=== PATIENT | female | born 1945 | race Two or more races ===

== ENCOUNTER 2022-09-17 21:40 | Inpatient (IN) | payer OTHER ==
[~2022-09-17] VITALS: Ht 2.5 cm; Wt 68.2 kg
[2022-09-17 22:00] VITALS: BP 124/52
[2022-09-17] MEDS ORDERED: ONDANSETRON HCL 4 MG/2 ML VIAL IV PRN (22:15)
[2022-09-17] MEDS ORDERED: NITROGLYCERIN 0.4 MG SL TAB SL PRN (22:15)
[2022-09-17] MEDS ORDERED: DEXTROSE (50%) 50ML SYRG IV PRN (22:15)
[2022-09-17] MEDS ORDERED: MORPHINE SULFATE INJ 2 MG/ml SYRG IV PRN (22:15)
[2022-09-18] VITALS (7 sets, daily range): BP systolic 91–135; BP diastolic 41–56
[2022-09-18] MEDS ORDERED: POTA20TA24 (00:34)
[2022-09-18] MEDS ORDERED: EMPA1TAB3 PO (00:34)
[2022-09-18] MEDS ORDERED: LISI20TA28 PO (00:34)
[2022-09-18] MEDS ORDERED: AMLO-483 PO (00:34)
[2022-09-18] MEDS ORDERED: GLIP5TAB12 PO (00:34)
[2022-09-18] MEDS ORDERED: HYDR25TA87 PO (00:34)
[2022-09-18] MEDS ORDERED: PANT40T PO (00:34)
[2022-09-18] MEDS ORDERED: ROSU1TAB14 PO (00:34)
[2022-09-18] MEDS ORDERED: METO1TAB9 PO (00:34)
[2022-09-18] MEDS ORDERED: RANO500T3 PO (00:34)
[2022-09-18] MEDS ORDERED: LEVO75TA6 PO (00:34)
[2022-09-18] MEDS ORDERED: GABA300C10 PO (00:34)
[2022-09-18] MEDS ORDERED: METF-370 PO (00:34)
[2022-09-18] MEDS ORDERED: ALPR0.5T PO (02:01)
[2022-09-18] MEDS ORDERED: FURO40TA4 PO (02:01)
[2022-09-18] MEDS ORDERED: MELO1TAB73 PO (02:01)
[2022-09-18 05:40] LABS: Basophils # (auto) 0.1 10 ^3/uL (0-0.2); Basophils % (auto) 0.9 % (0.0-2.0); Eosinophils # (auto) 0 10 ^3/uL (0-0.8); Eosinophils % (auto) 0.7 % (0.0-7.0); Hematocrit 39.7 % (36.0-46.0); Hemoglobin 13.9 g/dL (12.2-16.2); Lymphocytes # (auto) 1.8 10 ^3/uL (0.4-5.4); Lymphocytes % (auto) 28.8 % (10.0-50.0); Mean Corpuscular Hemoglobin 32.7 pg (28.0-32.0); Mean Corpuscular Volume 93.5 fL (80.0-100.0); Monocytes # (auto) 0.5 10 ^3/uL (0-1.3); Monocytes % (auto) 8.3 % (0.0-12.0); Neutrophils # (auto) 3.8 10 ^3/uL (1.6-8.6); Neutrophils % (auto) 61.3 % (37.0-80.0); Nucleated Red Blood Cells % 0.1 %; Red Blood Cells 4.25 10^6/uL (4.0-5.20); Red Cell Distribution Width 13.3 % (11.8-14.3); White Blood Cell 6.1 10^3/uL (4.4-10.8)
[2022-09-18 05:53] LABS: Calcium 9.2 mg/dL (8.5-10.1); Potassium 3.8 mmol/L (3.5-5.1)
[2022-09-18 05:57] LABS: BUN/Creatinine Ratio 21.3
[2022-09-18] MEDS: InsuLIN REG 1unit/0.01ml Soln (100units/ml) SC SCH ×4 (06:00→17:52)
[2022-09-18] MEDS: ACCU-CHEK COMFORT CURVE STRIP VI SCH ×4 (06:00→17:51)
[2022-09-18] MEDS: ENOXAPARIN SOD 40 MG/0.4 ML SYRINGE SC SCH (10:13)
[2022-09-18] MEDS: ASPirin 81 mg TAB PO SCH (10:13)
[2022-09-18] MEDS: PANTOPRAZOLE 40 MG/10 ML VIAL INJ IV SCH (10:13)
[2022-09-18] MEDS ORDERED: SENNA 8.6 MG TAB PO PRN (12:00)
[2022-09-18] MEDS: LACTULOSE 20Gm/30ML SOLN PO PRN (12:09)
[2022-09-18] MEDS: DOCUSATE SOD 100 MG CAP PO SCH ×2 (12:09→22:51)
[2022-09-18] MEDS: ACETAMINOPHEN 325 MG TAB PO PRN (15:04)
[2022-09-18 17:56] LABS: Albumin 3.7 g/dL (3.4-5.0); Calcium 8.5 mg/dL (8.5-10.1); Potassium 3.7 mmol/L (3.5-5.1)
[2022-09-18 18:00] LABS: BUN/Creatinine Ratio 21.6; Total Protein 6.7 g/dL (6.4-8.2)
[2022-09-18] MEDS ORDERED: ATORVASTATIN 20 MG TAB PO SCH ×2 (21:30→22:00)
[2022-09-18] MEDS: ATORVASTATIN 20 MG TAB PO SCH (22:51)
[2022-09-19] MEDS: ACCU-CHEK COMFORT CURVE STRIP VI SCH ×4 (01:11→18:06)
[2022-09-19 04:44] LABS: Urine Bacteria FEW /hpf (None Seen); Urine Blood Negative /uL (Negative); Urine Hyaline Cast FEW /lpf (0 - 2); Urine Mucus FEW (None Seen); Urine Specific Gravity 1.038 (1.001-1.035); Urine WBC 34 /hpf (0 - 5)
[2022-09-19 05:00] VITALS: BP 112/43
[2022-09-19 05:46] LABS: Basophils # (auto) 0 10 ^3/uL (0-0.2); Basophils % (auto) 0.7 % (0.0-2.0); Eosinophils # (auto) 0 10 ^3/uL (0-0.8); Eosinophils % (auto) 0.2 % (0.0-7.0); Hematocrit 39.1 % (36.0-46.0); Lymphocytes # (auto) 1.5 10 ^3/uL (0.4-5.4); Lymphocytes % (auto) 21.9 % (10.0-50.0); Mean Corpuscular Hemoglobin 33.2 pg (28.0-32.0); Mean Corpuscular Hgb Conc. 35.7 g/dL (32.0-36.0); Mean Corpuscular Volume 92.9 fL (80.0-100.0); Monocytes # (auto) 0.4 10 ^3/uL (0-1.3); Monocytes % (auto) 6.1 % (0.0-12.0); Neutrophils # (auto) 4.9 10 ^3/uL (1.6-8.6); Neutrophils % (auto) 71.1 % (37.0-80.0); Nucleated Red Blood Cells % 0.1 %; Red Cell Distribution Width 13.1 % (11.8-14.3); White Blood Cell 6.9 10^3/uL (4.4-10.8)
[2022-09-19] MEDS: InsuLIN REG 1unit/0.01ml Soln (100units/ml) SC SCH ×4 (05:48→18:00)
[2022-09-19 05:59] LABS: Potassium 3.6 mmol/L (3.5-5.1)
[2022-09-19 06:03] LABS: BUN/Creatinine Ratio 30.4; Calcium 8.4 mg/dL (8.5-10.1)
[2022-09-19] MEDS: PANTOPRAZOLE 40 MG/10 ML VIAL INJ IV SCH (09:30)
[2022-09-19] MEDS: ASPirin 81 mg TAB PO SCH (09:30)
[2022-09-19] MEDS: DOCUSATE SOD 100 MG CAP PO SCH ×2 (09:31→22:40)
[2022-09-19] MEDS: ENOXAPARIN SOD 40 MG/0.4 ML SYRINGE SC SCH (09:31)
[2022-09-19] MEDS: CLOPIDOGREL BISULFATE 75 MG TAB PO SCH (09:31)
[2022-09-19 09:38] VITALS: BP 98/41
[2022-09-19] MEDS: LACTULOSE 20Gm/30ML SOLN PO PRN (10:15)
[2022-09-19] MEDS: ACETAMINOPHEN 325 MG TAB PO PRN (10:16)
[2022-09-19 13:00] VITALS: BP 101/49
[2022-09-19] MEDS ORDERED: CIPROFLOXACIN HYDROCHLORIDE 250 MG TAB PO ONE (13:45)
[2022-09-19 17:00] VITALS: BP 109/53
[2022-09-19 22:00] VITALS: BP 101/42
[2022-09-19] MEDS: CIPROFLOXACIN HYDROCHLORIDE 250 MG TAB PO SCH (22:39)
[2022-09-19] MEDS: ATORVASTATIN 20 MG TAB PO SCH (22:39)
[2022-09-19] MEDS: RANOLAZINE ER 500 MG TAB PO SCH (22:39)
[2022-09-20 05:00] VITALS: BP 121/42
[2022-09-20] MEDS: ACCU-CHEK COMFORT CURVE STRIP VI SCH ×3 (05:26→12:16)
[2022-09-20] MEDS: InsuLIN REG 1unit/0.01ml Soln (100units/ml) SC SCH ×3 (05:45→12:25)
[2022-09-20 06:12] LABS: Basophils # (auto) 0 10 ^3/uL (0-0.2); Basophils % (auto) 0.7 % (0.0-2.0); Eosinophils # (auto) 0 10 ^3/uL (0-0.8); Eosinophils % (auto) 0.5 % (0.0-7.0); Hematocrit 37.9 % (36.0-46.0); Hemoglobin 13.9 g/dL (12.2-16.2); Lymphocytes # (auto) 1.6 10 ^3/uL (0.4-5.4); Mean Corpuscular Hemoglobin 33.5 pg (28.0-32.0); Mean Corpuscular Volume 91.8 fL (80.0-100.0); Monocytes # (auto) 0.4 10 ^3/uL (0-1.3); Monocytes % (auto) 7.5 % (0.0-12.0); Neutrophils # (auto) 3.8 10 ^3/uL (1.6-8.6); Neutrophils % (auto) 64.3 % (37.0-80.0); Nucleated Red Blood Cells % 0.2 %; Red Blood Cells 4.13 10^6/uL (4.0-5.20); White Blood Cell 5.9 10^3/uL (4.4-10.8)
[2022-09-20 06:33] LABS: Calcium 8.7 mg/dL (8.5-10.1); Potassium 3.4 mmol/L (3.5-5.1)
[2022-09-20 06:35] LABS: BUN/Creatinine Ratio 28.1
[2022-09-20 06:39] LABS: Mean Corpuscular Hgb Conc. 36.5 g/dL (32.0-36.0)
[2022-09-20] MEDS ORDERED: LEVOTHYROXINE SODIUM 25 MCG TAB PO SCH (07:00)
[2022-09-20 08:00] VITALS: BP 131/55
[2022-09-20] MEDS ORDERED: FUROSEMIDE 40 MG TAB PO SCH (10:00)
[2022-09-20] MEDS: CIPROFLOXACIN HYDROCHLORIDE 250 MG TAB PO SCH (11:06)
[2022-09-20] MEDS: DOCUSATE SOD 100 MG CAP PO SCH (11:07)
[2022-09-20] MEDS: PANTOPRAZOLE 40 MG/10 ML VIAL INJ IV SCH (11:07)
[2022-09-20] MEDS: CLOPIDOGREL BISULFATE 75 MG TAB PO SCH (11:07)
[2022-09-20] MEDS: ASPirin 81 mg TAB PO SCH (11:09)
[2022-09-20] MEDS: RANOLAZINE ER 500 MG TAB PO SCH (11:09)
[2022-09-20] MEDS: ENOXAPARIN SOD 40 MG/0.4 ML SYRINGE SC SCH (11:10)
[2022-09-20] MEDS ORDERED: CIP250T PO (13:15)
[2022-09-20 14:44] VITALS: BP 131/55
== END 2022-09-20 18:07 | disposition home or self-care (01) | DRG 66 ==
LOC: TELE-CENTR 21:40
PROVIDERS: ADMIT Nurse Practitioner Family; ATTEND Internal Medicine
DX: I63.9 Cerebral infarction, unspecified (principal); E78.5 Hyperlipidemia, unspecified; I11.0 Hypertensive heart disease with heart failure; Z20.822 Contact with and (suspected) exposure to COVID-19; E11.42 Type 2 diabetes mellitus with diabetic polyneuropathy; F41.9 Anxiety disorder, unspecified; I50.9 Heart failure, unspecified; J44.9 Chronic obstructive pulmonary disease, unspecified; E03.9 Hypothyroidism, unspecified; I25.10 Atherosclerotic heart disease of native coronary artery without angina pectoris; Z79.02 Long term (current) use of antithrombotics/antiplatelets; Z79.82 Long term (current) use of aspirin; Z79.84 Long term (current) use of oral hypoglycemic drugs; Z79.899 Other long term (current) drug therapy; Z83.3 Family history of diabetes mellitus; Z95.5 Presence of coronary angioplasty implant and graft
CPT/HCPCS: 36415; 70551; 80048; 80053; 80061; 81001; 82962; 83036; 84443; 85025; 87426; 93306; 93886; 95819; 97110; 97116; 97163; 97530; C9113; G0378; J1815

== ENCOUNTER 2023-11-18 16:09 | Emergency (ER) | payer OTHER ==
[~2023-11-18] VITALS: Ht 162.6 cm; Wt 74.6 kg
[~2023-11-18 16:09] MED LIST: ALPR0.5T PO; AMLO1TAB21 PO; CIPR250T26 PO; EMPA1TAB3 PO; FURO40TA4 PO; GABA-1250 PO; GLIP5TAB21 PO; HYDR25TA87 PO; LEVO75TA6 PO; LISI20TA56 PO; MELO7.5T7 PO; METF-370 PO; METO1TAB9 PO; PANT40T PO; POTA20TA24; RANO500T3 PO; ROSU20TA56 PO
[2023-11-18 17:11] LABS: Basophils # (auto) 0 10 ^3/uL (0-0.2); Basophils % (auto) 0.8 % (0.0-2.0); Eosinophils # (auto) 0 10 ^3/uL (0-0.8); Eosinophils % (auto) 0.5 % (0.0-7.0); Hematocrit 41.5 % (36.0-46.0); Hemoglobin 14.2 g/dL (12.2-16.2); Lymphocytes # (auto) 1.8 10 ^3/uL (0.4-5.4); Mean Corpuscular Hemoglobin 31.7 pg (28.0-32.0); Mean Corpuscular Hgb Conc. 34.2 g/dL (32.0-36.0); Mean Corpuscular Volume 92.8 fL (80.0-100.0); Monocytes # (auto) 0.4 10 ^3/uL (0-1.3); Neutrophils # (auto) 3.5 10 ^3/uL (1.6-8.6); Neutrophils % (auto) 60.7 % (37.0-80.0); Nucleated Red Blood Cells % 0.1 %; Red Blood Cells 4.47 10^6/uL (4.0-5.20); Red Cell Distribution Width 13.4 % (11.8-14.3); White Blood Cell 5.8 10^3/uL (4.4-10.8)
[2023-11-18 17:20] LABS: Alanine Aminotransferase 24 U/L (7-40); Albumin 4.8 g/dL (3.2-4.8); Alkaline Phosphatase 60 U/L (46-116); Anion Gap 6 (5-15); Aspartate Aminotransferase 19 U/L (13-40); BUN/Creatinine Ratio 16.5 (10.0-20.0); Bilirubin, Total 2.2 mg/dL (0.2-1.0); Blood Urea Nitrogen 15 mg/dL (9-23); Calcium 9.8 mg/dL (8.7-10.4); Carbon Dioxide 26 mmol/L (20-30); Chloride 103 mmol/L (98-107); Glucose 324 mg/dL (74-106); Magnesium 2.3 mg/dL (1.6-2.6); Potassium 4.2 mmol/L (3.5-5.1); Sodium 135 mmol/L (136-145); Total Protein 6.8 g/dL (5.7-8.2)
[2023-11-18 20:39] LABS: Urine Bacteria None Seen /hpf (None Seen)
[2023-11-18 20:45] LABS: Urine Blood Negative /uL (Negative); Urine Clarity Clear (Clear); Urine Color Light-Yellow (Yellow); Urine Protein, UAD Negative (Negative); Urine Specific Gravity 1.006 (1.001-1.035); Urine Urobilinogen Normal (Negative); Urine WBC 3 /hpf (0 - 5); Urine pH 5.5 (5.0-9.0)
[2023-11-18] MEDS: InsuLIN REG 1unit/0.01ml Soln (100units/ml) SC ONE (21:10)
[2023-11-18 21:12] VITALS: BP 156/67; PULSE 64; RESP 17; TEMP 98.4; O2SAT 96
== END 2023-11-18 21:20 | disposition home or self-care (01) ==
LOC: ER 16:09
DX: E11.65 Type 2 diabetes mellitus with hyperglycemia (principal); J44.9 Chronic obstructive pulmonary disease, unspecified; E78.5 Hyperlipidemia, unspecified; I50.9 Heart failure, unspecified; I25.10 Atherosclerotic heart disease of native coronary artery without angina pectoris; E03.9 Hypothyroidism, unspecified; Z90.49 Acquired absence of other specified parts of digestive tract; Z79.899 Other long term (current) drug therapy
CPT/HCPCS: 36415; 80053; 81001; 82010; 82962; 83605; 83735; 84484; 85025